=== PATIENT | male | born 1995 | race Hispanic/Latino ===

== ENCOUNTER 2020-03-17 09:40 | Emergency (ER) | payer OTHER ==
[~2020-03-17] VITALS: Ht 175.3 cm; Wt 113.4 kg
== END 2020-03-17 11:57 | disposition home or self-care (01) ==
LOC: ED 09:40
DX: R10.9 Unspecified abdominal pain (principal); W22.8XXA Striking against or struck by other objects, initial encounter; Y99.0 Civilian activity done for income or pay
CPT/HCPCS: 80053; 83690; 85025; 99284

== ENCOUNTER 2020-04-15 18:06 | Emergency (ER) | payer OTHER ==
[~2020-04-15] VITALS: Ht 175.3 cm; Wt 113.4 kg
--- OUTSIDE RECORDS SUMMARY | 2020-04-15 18:08 | XMS ---
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 Alissa has no Care Guidelines for this patient. Yuliya VISIT COUNT (12 MO.) 2 [facility] [place] [facility] TOTAL 2 NOTE: Visits indicate total known visits. ED/C VISIT TRACKING (12 MO.) 04[facility]15/2020 18[facility]06 [facility] [place] [facility] COMPLAINT: - LEFT ANKLE PAIN 03/17/2020 09:[address] [facility] [place] TYPE: Emergency COMPLAINT: - ABD PAIN, OJI DIAGNOSES: - Civilian activity done for income or pay - Unspecified abdominal pain - Striking against or struck by other objects, initial encounter INPATIENT VISIT TRACKING (12 MO.) No inpatient visits to display in this time frame [email or web address]
[2020-04-15] MEDS ORDERED: PERCOCET 5-3251 EACH PO (19:21)
[2020-04-15] MEDS ORDERED: CRUTCH1 EACH MISC (19:21)
== END 2020-04-15 20:13 | disposition home or self-care (01) ==
LOC: ED 18:06
DX: S93.402A Sprain of unspecified ligament of left ankle, initial encounter (principal); X50.9XXA Other and unspecified overexertion or strenuous movements or postures, initial encounter
CPT/HCPCS: 73610; 73630; 96374; 96375; 99283-25; J1170; J1885; J2270

== ENCOUNTER 2022-01-27 01:34 | Emergency (ER) | payer SELFPAY ==
[~2022-01-27] VITALS: Ht 175.3 cm; Wt 97.2 kg
[~2022-01-27 01:34] MED LIST: CRUTCH1 EACH MISC; PERCOCET 5-3251 EACH PO
[2022-01-27] MEDS ORDERED: CEPHALEXIN500 M1 PO (02:25)
== END 2022-01-27 02:44 | disposition home or self-care (01) ==
LOC: ED 01:34
DX: L02.01 Cutaneous abscess of face (principal); Q85.8 Other phakomatoses, not elsewhere classified
CPT/HCPCS: 99282; A9270

== ENCOUNTER 2022-04-07 06:35 | Emergency (ER) | payer OTHER ==
[~2022-04-07] VITALS: Ht 175.3 cm; Wt 97.1 kg
[~2022-04-07 06:35] MED LIST changes: +CEPHALEXIN500 M1 PO
== END 2022-04-07 08:17 | disposition home or self-care (01) ==
LOC: ED 06:35
DX: L98.9 Disorder of the skin and subcutaneous tissue, unspecified (principal)
CPT/HCPCS: 99283

== ENCOUNTER 2024-06-29 18:50 | Emergency (ER) | payer OTHER ==
[~2024-06-29] VITALS: Ht 175.3 cm; Wt 91.2 kg
[2024-06-29] MEDS ORDERED: LATANOPROST2.5 ML OPTH (19:02)
[2024-06-29] MEDS ORDERED: SUMAtriptan succinate 6 MG/0.5 ML VIAL SUB-Q ONE (20:15)
[2024-06-29] MEDS ORDERED: SODIUM CHLORIDE 0.9% 1,000 ML IV ONE (20:15)
[2024-06-29] MEDS ORDERED: KETOROLAC TROMETHAMINE 30 MG/ML VIAL IV ONE (20:15)
[2024-06-29] MEDS ORDERED: METOCLOPRAMIDE HCL 10 MG/2 ML SDV IV ONE (20:15)
[2024-06-29] MEDS ORDERED: IMITREX25 MG PO (20:57)
[2024-06-29] MEDS ORDERED: ONDANSETRON ODT4 MG PO (20:57)
[2024-06-29] MEDS ORDERED: ONDANSETRON 4 MG HOME.PACK SL ONE (21:00)
[2024-06-29 21:39] VITALS: BP 129/86
== END 2024-06-29 21:18 | disposition home or self-care (01) ==
LOC: ED 18:50
DX: G43.909 Migraine, unspecified, not intractable, without status migrainosus (principal); Z79.899 Other long term (current) drug therapy
CPT/HCPCS: 70450; 96374; 96375; 99283-25; A9270; J1885; J2765; J3030; J7030

== ENCOUNTER 2024-11-18 09:10 | Emergency (ER) | payer OTHER ==
[~2024-11-18] VITALS: Ht 175.3 cm; Wt 91.3 kg
[~2024-11-18 09:10] MED LIST changes: +IMITREX25 MG PO; +LATANOPROST2.5 ML OPTH; +ONDANSETRON ODT4 MG PO
[2024-11-18] MEDS ORDERED: FREESTYLE LANC1 EACH MISC (09:28)
[2024-11-18] MEDS ORDERED: TRULICITY1.5 MG/0.5 SQ (09:28)
[2024-11-18] MEDS ORDERED: TRULICITY0.75 MG/0. SQ (09:28)
[2024-11-18] MEDS ORDERED: METFORMIN HCL500 M1 PO (09:28)
[2024-11-18] MEDS ORDERED: DILTIAZEM ER120 MG PO (09:29)
[2024-11-18 10:20] VITALS: BP 127/90
== END 2024-11-18 10:20 | disposition home or self-care (01) ==
LOC: ED 09:10
DX: L98.8 Other specified disorders of the skin and subcutaneous tissue (principal); G43.909 Migraine, unspecified, not intractable, without status migrainosus; Z79.84 Long term (current) use of oral hypoglycemic drugs; Z79.85 Long-term (current) use of injectable non-insulin antidiabetic drugs; Z79.899 Other long term (current) drug therapy
CPT/HCPCS: 99282